=== PATIENT | female | born 1990 | race Caucasian/White ===

== ENCOUNTER → 2020-12-10 12:29 | Outpatient (BNVA) | payer OTHER, SELFPAY | PROVIDERS: PCP Internal Medicine; Visit Provider Physician Assistant | DX: E66.9 Obesity, unspecified (principal); Z68.35 Body mass index [BMI] 35.0-35.9, adult; Z71.3 Dietary counseling and surveillance | CPT/HCPCS: 99202 ==

== ENCOUNTER 2021-08-13 08:15 | Outpatient (REF) | payer OTHER, SELFPAY ==
[2021-08-13 08:46] LABS: MANUAL DIFF FLAG NO
[2021-08-13 09:12] LABS: Basophils Percent Auto 0.2 % (0-2); Eosinophils Absolute Auto 0.1 X10*3/uL (0.0-0.4); Eosinophils Percent Auto 1.5 % (0-4); Hematocrit 42.1 % (37.0-47.0); Hemoglobin 13.8 g/dl (12.0-16.0); Imm Gran Abs Auto 0.02 X10*3/uL (0.00-0.03); Imm Gran Pct Auto 0.2 % (0.0-0.4); Lymphocytes Absolute Auto 2.4 X10*3/uL (1.2-4.9); Mean Corpuscular HGB Conc 32.8 g/dl (31.0-35.0); Mean Corpuscular Hemoglobin 28.7 pg (27.0-33.0); Mean Corpuscular Volume 87.5 fL (80.0-98.0); Mean Platelet Volume 9.4 fL (9.4-12.3); Monocytes Absolute Auto 0.6 X10*3/uL (0.1-1.2); Monocytes Percent Auto 7.6 % (2-11); Neutrophils Absolute Auto 5.1 x10*3/uL (2.0-8.3); Neutrophils Percent Auto 61.5 % (45-73); Platelet Count 272 X10*3/uL (160-400); Red Blood Count 4.81 X10*6/uL (4.20-5.50); Red Cell Distribution Width 12.9 % (11.0-16.0); White Blood Count 8.3 X10*3/uL (4.8-10.8)
[2021-08-13 09:46] LABS: Alanine Aminotransferase 13 U/L (0-31); Alkaline Phosphatase 100 U/L (39-117); Anion Gap 9 (12-20); Aspartate Amino Transferase 13 U/L (5-31); Bilirubin Total 0.5 mg/dL (0.0-1.0); Blood Urea Nitrogen 11 mg/dL (9-16); Calcium 9.1 mg/dL (8.4-10.2); Carbon Dioxide 30 mmol/L (22-29); Chloride 104 mmol/L (96-108); Cholesterol 138 mg/dL; Estimated Glomerular Filt Rate > 60; Glucose Random 95 mg/dL (60-115); HDL Cholesterol 33 mg/dL; LDL Cholesterol Calculated 94 mg/dl; Potassium 4.1 mmol/L (3.3-5.1); Sodium 139 mmol/L (135-145); Total Protein 7.6 g/dL (6.5-8.0); Triglycerides 59 mg/dL
[2021-08-13 10:28] LABS: ~Hepatitis B Surface Antibody NONREACTIVE (Nonreactive)
[2021-08-15 06:57] LABS: Mumps Virus IgG Antibody <9.00 AU/mL; Rubella IgG Antibody 1.46 Index
[2021-08-16 19:56] LABS: TS Negative Control Passed; TS Panel A 0; TS Panel B 0; TS Positive Control Passed; TSpotTB Negative (Negative)
== END 2021-08-13 08:16 | disposition home or self-care (01) ==
LOC: HO.LAB 08:15
PROVIDERS: PCP Internal Medicine; Visit Provider Internal Medicine
DX: Z00.00 Encounter for general adult medical examination without abnormal findings (principal); F41.8 Other specified anxiety disorders; Z11.1 Encounter for screening for respiratory tuberculosis
CPT/HCPCS: 36415; 80053; 80061; 85025; 86481; 86706; 86735; 86762; 86765; 86787

== ENCOUNTER 2022-01-28 15:10 | Outpatient (REF) | payer OTHER, SELFPAY ==
--- NOTE | ~2022-01-28 | XR_ITS ---
EXAMINATION: XR ANKLE, RIGHT CLINICAL INFORMATION: Pain COMPARISON: Radiographs right foot 10/07/2016 TECHNIQUE: AP, lateral, and mortise views of the right ankle. FINDINGS: Normal bony mineralization. No acute or healing fracture, dislocation, destructive process. No joint narrowing or erosive change or capsular effusion. Subtalar joint unremarkable. Ankle mortise is symmetric. The retrocalcaneal recess is preserved. There is borderline punctate posterior calcaneal spur. XR/XR ankle RT min 3V IMPRESSION: -No fracture, dislocation, or arthropathy. -Punctate posterior calcaneal spur. Retrocalcaneal recess preserved.
== END 2022-01-28 15:11 | disposition home or self-care (01) ==
LOC: HO.XRAY 15:10
PROVIDERS: PCP Internal Medicine; Visit Provider Internal Medicine
DX: M25.571 Pain in right ankle and joints of right foot (principal)
CPT/HCPCS: 73610

== ENCOUNTER 2022-02-25 14:51 | Outpatient (REF) | payer OTHER, SELFPAY ==
[2022-02-26 06:41] LABS: CT PCR NOT DETECTED (Not Detect.); NG PCR NOT DETECTED (Not Detect.)
[2022-02-28 06:12] LABS: HPV mRNA E6/E7 rflx Not Detected (Not Detected)
== END 2022-02-25 14:52 | disposition home or self-care (01) ==
LOC: HO.LAB 14:51
PROVIDERS: Visit Provider Advanced Practice Midwife
DX: Z01.419 Encounter for gynecological examination (general) (routine) without abnormal findings (principal); Z11.51 Encounter for screening for human papillomavirus (HPV); Z11.4 Encounter for screening for human immunodeficiency virus [HIV]; Z20.2 Contact with and (suspected) exposure to infections with a predominantly sexual mode of transmission
CPT/HCPCS: 36415; 86704; 86780; 86803; 87389; 87491; 87591; 87624; 88142

== ENCOUNTER 2022-02-25 14:57 | Outpatient (REF) | payer OTHER, SELFPAY ==
[2022-02-25 16:29] LABS: Syphilis Screen Nonreactive (Nonreactive)
[2022-02-26 05:38] LABS: HIV AB/AG Nonreactive (Nonreactive); HIV Num 1 0.04 S/CO (0.00-0.99); ~HepC Num1 0.04 S/CO (0.00-0.79); ~Hepatitis C Antibody Nonreactive (Nonreactive)
[2022-02-26 05:48] LABS: Hepatitis B Core Antibody Nonreactive (Nonreactive)
== END 2022-02-25 14:58 | disposition home or self-care (01) ==
LOC: HO.LAB 14:57
PROVIDERS: PCP Internal Medicine; Visit Provider Advanced Practice Midwife
DX: Z13.89 Encounter for screening for other disorder (principal)
CPT/HCPCS: 36415; 86704; 86780; 86803; 87389

== ENCOUNTER → 2022-03-31 10:52 | Outpatient (BNVA) | payer OTHER, SELFPAY | PROVIDERS: PCP Internal Medicine; Visit Provider Surgery | DX: L72.11 Pilar cyst (principal) | CPT/HCPCS: 99202 ==

== ENCOUNTER 2022-08-03 09:28 | Outpatient (REF) | payer OTHER, SELFPAY | END 2022-08-03 09:29 | disposition home or self-care (01) | LOC: HO.LNP 09:28 | PROVIDERS: PCP Internal Medicine; Visit Provider Advanced Practice Midwife | DX: Z30.432 Encounter for removal of intrauterine contraceptive device (principal); T83.84XA Pain due to genitourinary prosthetic devices, implants and grafts, initial encounter | CPT/HCPCS: 58301; 99212 ==

== ENCOUNTER 2022-08-03 10:36 | Outpatient (REF) | payer OTHER, SELFPAY ==
[2022-08-03 12:35] LABS: Syphilis Screen Nonreactive (Nonreactive)
[2022-08-03 14:54] LABS: CT PCR NOT DETECTED (Not Detect.); NG PCR NOT DETECTED (Not Detect.)
[2022-08-04 13:45] LABS: BV Int Neg Control Negative (Negative); BV Int Pos Control Positive (Positive)
[2022-08-05 08:05] LABS: HBsAGNum1 0.33 S/CO (0.00-0.99); HIV AB/AG Nonreactive (Nonreactive); HIV Num 1 0.06 S/CO (0.00-0.99); Hepatitis B Surface Antigen Negative (Negative); ~HepC Num1 0.08 S/CO (0.00-0.79); ~Hepatitis C Antibody Nonreactive (Nonreactive)
== END 2022-08-03 10:37 | disposition home or self-care (01) ==
LOC: HO.LAB 10:36
PROVIDERS: PCP Internal Medicine; Visit Provider Advanced Practice Midwife
DX: Z11.4 Encounter for screening for human immunodeficiency virus [HIV] (principal); Z20.2 Contact with and (suspected) exposure to infections with a predominantly sexual mode of transmission; N89.8 Other specified noninflammatory disorders of vagina
CPT/HCPCS: 0353U; 86780; 86803; 87340; 87389; 87480; 87510; 87660

== ENCOUNTER 2023-03-03 14:01 | Outpatient (AMB) | payer OTHER, SELFPAY ==
--- NOTE | 2023-03-03 14:04 | A.OFFVIS_ITS ---
Intake Vital Signs 03/03/23 14:05 Height 5 ft 1 in Weight 172 lb BMI 32.5 BP 110/70 Intake Visit Reasons: Annual Intake Note: The patient agreed to use of a general medical practitioner during this encounter. Scribed for JHOANA Blackwood by Haydee Luis general medical practitioner, on 03/03/2023 at 2:24 pm EST. Mail Handler Assistant: Mail Handler Assistant Present (Herlinda) Allergies penicillin V Allergy (Unknown, Verified 03/03/23 14:05) rash Penicillins [PENICILLINS] Allergy (Unknown, Verified 03/03/23 14:05) HIVES Is last menstrual period known: Yes Last menstrual period: 02/23/23 HPI HPI Comments History of Present Illness Details She is a premenopausal woman presenting for annual exam. She admits to eating healthy and tries to stay active with exercise. Reports her menses this month was for 7 days when her normal is 5 days. LMP 02/23/23. She stopped taking her OCP's a month ago. Currently sexually active. She is interested in future . She is not taking PNV. Denies vaginal itching, irritation, discharge or odor. STD screening offered; she accepts. STD blood work was recently done in July 2022. Denies family hx of colon and cancer. Last pap smear 02/25/22. [facility] Medical History Club foot Depression Surgical History H/O foot surgery H/O knee surgery History of hip surgery Family History Mother Accelerated hypertension High cholesterol Anxiety Bipolar 1 disorder Asthma Ovarian cancer Diabetes Father No problems noted. Daughter No problems noted. Daughter No problems noted. Paternal Grandmother History of breast cancer Maternal Grandmother History of breast cancer Social History Alcohol intake: current Alcohol intake frequency: holidays/special occasions only Patient Tobacco Use Status: Never used Tobacco Sexual orientation: Straight/Heterosexual Gender identity: Female Female Reproductive History Menstrual Age of Menarche: 13 Duration of menses: 3-5 days Date of last menstrual period: 02/23/23 Total pregnancies: 2 Full term: 2 Number of Living Children: 2 Date of last pap smear: 02/25/22 (neg pap and hpv) Physical Exam Vital Signs: Last Vital Signs BP 110/70 03/03/23 14:05 BMI result Body Mass Index 32.5 Const General: cooperative, healthy appearing, no acute distress, well developed and alert Orientation/consciousness: patient oriented x3 HEENT Head: Yes normal to inspection Eyes General: appearance normal, both eyes and all related structures Neck Neck: Yes normal visual inspection Thyroid: Thyroid normal Chest Chest palpation & inspection: normal inspection of the chest Breast/axilla inspection: normal inspection of the breasts (no puckering, dimpling, peau de orange, retraction, discharge, masses) Breast/axilla palpation: normal palpation of the breasts Resp Effort & Inspection: normal respiratory effort GI Inspection: Yes normal to inspection Palpation (GI): Soft to palpation (to palpation) Rectal Exam - Female: deferred General: Yes bladder normal to inspection External Female Exam: normal external appearance and normal appearance of the urethra Speculum Exam - Vagina: normal appearance of the vagina, normal palpation and normal vaginal discharge Speculum Exam - Cervix: normal appearance of the cervix, normal palpation and Other cervical findings present (moderate amount of blood) Bimanual exam- vagina & uterus: normal palpation and normal palpation Bimanual Exam- Adnexa, other: normal adnexae and no masses Skin General skin exam: no rashes or lesions noted Neuro General: patient oriented x3 Cognition (Neuro): normal cognition Extrem General: Yes normal to inspection Psych Attitude: cooperative Thought process: Normal thought process present Assessment & Plan Assessment & Plan (1) Encounter for well woman exam: Code(s): Z01.419 - Encounter for gynecological examination (general) (routine) without abnormal findings Plan: Discussed: Current recommendations for pap smears per ASCCP guidelines Breast awareness and periodic self breast exams. Maintaining a healthy lifestyle including a well balanced diet and routine exercise. Monitor menses and ovulation to help plan future . If missed menses, take at home test. If positive RTO for further evaluation. PNV Rx ordered. Encouraged patient to sign up for patient portal. All of her questions and concerns were addressed to the best of my ability. RTO in one year for AG. (2) Potential exposure to STD: Code(s): Z20.2 - Contact with and (suspected) exposure to infections with a predominantly sexual mode of transmission Plan: GC/CT panel done today. Await results and treat accordingly. Orders: Orders CT NG by PCR Today Z20.2 - Contact with and (suspected) exposure to infections with a predominantly sexual mode of transmission Medications: New PNV,calcium 46-lwqr-cweeh acid 27 mg iron- 1 mg ( Vitamins Plus Low Iron) 1 tab PO DAILY 90 tabs 4RF Discontinued desog-e.estradiol/e.estradiol 0.15-0.02 mgx21 /0.01 mg x 5 Discontinued Reason: Patient Completed Course 1 tab PO DAILY 84 tabs 1RF Coding Level of Care Code Est Pt Prev Care 18-39y(24280) Diagnoses Encounter for well woman exam Z01.419 Potential exposure to STD Z20.2
[2023-03-03 14:05] VITALS: BP 110/70; BMI 32.5
== END 2023-03-03 14:43 | disposition home or self-care (01) ==
LOC: HO.HWS 14:01
PROVIDERS: PCP Internal Medicine; Visit Provider Advanced Practice Midwife
DX: Z01.419 Encounter for gynecological examination (general) (routine) without abnormal findings (principal); Z20.2 Contact with and (suspected) exposure to infections with a predominantly sexual mode of transmission
CPT/HCPCS: 99395

== ENCOUNTER 2023-03-03 14:01 | Outpatient (REF) | payer OTHER, SELFPAY ==
[2023-03-04 06:22] LABS: CT PCR NOT DETECTED (Not Detect.); NG PCR NOT DETECTED (Not Detect.)
== END 2023-03-03 14:02 | disposition home or self-care (01) ==
LOC: HO.LNP 14:01
PROVIDERS: PCP Internal Medicine; Visit Provider Advanced Practice Midwife
DX: Z01.419 Encounter for gynecological examination (general) (routine) without abnormal findings (principal); Z20.2 Contact with and (suspected) exposure to infections with a predominantly sexual mode of transmission
CPT/HCPCS: 0353U

== ENCOUNTER 2024-02-23 11:15 | Outpatient (REF) | payer OTHER, SELFPAY ==
[2024-02-23 11:29] LABS: MANUAL DIFF FLAG NO
[2024-02-23 13:02] LABS: Alanine Aminotransferase 16 U/L (0-31); Albumin Level 3.7 g/dL (3.5-5.0); Alkaline Phosphatase 99 U/L (39-117); Anion Gap 11 (12-20); Aspartate Amino Transferase 17 U/L (5-31); Bilirubin Total 0.4 mg/dL (0.0-1.0); Blood Urea Nitrogen 9 mg/dL (9-16); Calcium 9.3 mg/dL (8.4-10.2); Carbon Dioxide 27 mmol/L (22-29); Chloride 104 mmol/L (96-108); Estimated Glomerular Filt Rate > 60; Glucose Random 87 mg/dL (60-115); Sodium 138 mmol/L (135-145); Total Protein 7.7 g/dL (6.5-8.0)
[2024-02-23 13:39] LABS: Basophils Percent Auto 0.1 % (0-2); Eosinophils Absolute Auto 0.1 X10*3/uL (0.0-0.4); Eosinophils Percent Auto 0.6 % (0-4); Hematocrit 40.2 % (37.0-47.0); Hemoglobin 13.2 g/dl (12.0-16.0); Imm Gran Abs Auto 0.03 X10*3/uL (0.00-0.03); Imm Gran Pct Auto 0.3 % (0.0-0.4); Lymphocytes Absolute Auto 2.1 X10*3/uL (1.2-4.9); Lymphocytes Percent Auto 24.2 % (20-40); Mean Corpuscular HGB Conc 32.8 g/dl (31.0-35.0); Mean Corpuscular Hemoglobin 29.1 pg (27.0-33.0); Mean Corpuscular Volume 88.5 fL (80.0-98.0); Mean Platelet Volume 9.8 fL (9.4-12.3); Monocytes Absolute Auto 0.6 X10*3/uL (0.1-1.2); Monocytes Percent Auto 6.3 % (2-11); Neutrophils Absolute Auto 6.1 x10*3/uL (2.0-8.3); Neutrophils Percent Auto 68.5 % (45-73); Platelet Count 312 X10*3/uL (160-400); Red Blood Count 4.54 X10*6/uL (4.20-5.50); Red Cell Distribution Width 14.3 % (11.0-16.0); White Blood Count 8.9 X10*3/uL (4.8-10.8)
== END 2024-02-23 11:16 | disposition home or self-care (01) ==
LOC: HO.LAB 11:15
PROVIDERS: PCP Internal Medicine; Visit Provider Internal Medicine
DX: Z00.00 Encounter for general adult medical examination without abnormal findings (principal); E66.9 Obesity, unspecified; F32.5 Major depressive disorder, single episode, in full remission; F41.8 Other specified anxiety disorders
CPT/HCPCS: 36415; 80053; 84443; 85025

== ENCOUNTER 2024-03-21 09:19 | Outpatient (REF) | payer OTHER, SELFPAY | END 2024-03-21 09:20 | disposition home or self-care (01) | LOC: HO.LNP 09:19 | PROVIDERS: PCP Internal Medicine; Visit Provider Advanced Practice Midwife | DX: Z01.419 Encounter for gynecological examination (general) (routine) without abnormal findings (principal); Z34.90 Encounter for supervision of normal pregnancy, unspecified, unspecified trimester | CPT/HCPCS: 81025; 99395 ==

== ENCOUNTER 2024-03-21 09:19 | Outpatient (AMB) | payer OTHER, SELFPAY ==
[2024-03-21 09:21] VITALS: BP 128/72; BMI 36.3
--- NOTE | 2024-03-21 09:21 | A.OFFVIS_ITS ---
Vital Signs 03/21/24 09:21 Height 5 ft 1 in Weight 192 lb 4 oz BMI 36.3 BP 128/72 Blood Pressure Location Lt brachial Position Sitting Intake Visit Reasons: [employer] annual exam Allergies penicillin V Allergy (Unknown, Verified 03/21/24 09:24) rash Penicillins [PENICILLINS] Allergy (Unknown, Verified 03/21/24 09:24) HIVES Is last menstrual period known: Yes Last menstrual period: 02/05/24 Patient : Yes HPI Comments Details: She is a premenopausal woman presenting for annual examination. Doing well with concerns: Positive home test 2 wks. ago. LMP , had Depo Science Analyst in mid February at [facility]. Additionally used a condom, he reports broke that day. Positive UPT today. She denies any pelvic pain or vaginal bleeding. History of ectopic. Delivered her last baby 12/20/2023. Unplanned , accepting, and now happy. She reports her family is very excited. Concerned with her nausea able to eat but not eating as healthy as she would like. Currently taking vitamins. She denies vaginal itching and irritation. Denies family history of colon cancer. Family history of breast and ovarian cancer. Last pap smear 2021, negative. [facility] Medical History (Updated 03/21/24 @ 09:22 by Yaima Schmidt CNM) Ectopic Depression Club foot Surgical History H/O foot surgery H/O knee surgery History of hip surgery Family History Mother Accelerated hypertension High cholesterol Anxiety Bipolar 1 disorder Asthma Ovarian cancer Diabetes Father No problems noted. Daughter No problems noted. Daughter No problems noted. Paternal Grandmother History of breast cancer Maternal Grandmother History of breast cancer Social History Alcohol intake: current Alcohol intake frequency: holidays/special occasions only Patient Tobacco Use Status: Never used Tobacco Sexual orientation: Straight/Heterosexual Gender identity: Female Female Reproductive History Menstrual Age of Menarche: 13 Date of last menstrual period: 02/05/24 control method: progesterone injection Total pregnancies: 5 Full term: 3 Ab spontaneous: 1 Date of last pap smear: 02/26/22 History of abnormal pap smear: No History of STI: No Review of Systems Const All systems reviewed & are unremarkable except as noted in HPI and below Reports as per HPI Eyes Reports no additional complaints ENT Reports no additional complaints Card Reports no additional complaints Resp Reports no additional complaints GI Reports as per HPI and Reports no additional complaints Reports as per HPI Musc Reports no additional complaints Skin/Breast Reports as per HPI Neuro Reports no additional complaints Psych Reports no additional complaints Endo Reports no additional complaints Bossman/Lymph Reports no additional complaints Aller/Immun Reports no additional complaints Physical Exam Vital Signs: Last Vital Signs BP 128/72 03/21/24 09:21 BMI result Body Mass Index 36.3 Const General: cooperative, healthy appearing, no acute distress, well developed and alert Orientation/consciousness: patient oriented x3 HEENT Head: Yes normal to inspection Eyes General: appearance normal, both eyes and all related structures Neck Neck: Yes normal visual inspection Thyroid: Thyroid normal Chest Chest palpation & inspection: normal inspection of the chest and other (no puckering, dimpling, peau de orange, retraction, discharge, masses) Breast/axilla inspection: normal inspection of the breasts Breast/axilla palpation: normal palpation of the breasts Resp Effort & Inspection: normal respiratory effort GI Inspection: Yes normal to inspection Palpation (GI): Soft to palpation Rectal Exam - Female: deferred General: Yes bladder normal to palpation External Female Exam: normal external appearance and normal appearance of the urethra Speculum Exam - Vagina: normal appearance of the vagina, normal palpation and normal vaginal discharge Speculum Exam - Cervix: normal appearance of the cervix and normal palpation Bimanual exam- vagina & uterus: normal bimanual exam, normal palpation, uterine size normal, bladder normal to palpation, normal palpation and non-tender Bimanual Exam- Adnexa, other: no masses Skin General skin exam: no rashes or lesions noted Rashes: no rashes Neuro General: patient oriented x3 Cognition (Neuro): normal cognition Extrem General: Yes normal to inspection Psych Attitude: cooperative Thought process: Normal thought process present Results AMB Test Urine AMB Test Urine Positive Last Edit by Emiliana Cooper CMA on 03/21/24 09:33 Assessment & Plan Assessment & Plan (1) Encounter for well woman exam with routine gynecological exam: Code(s): Z01.419 - Encounter for gynecological examination (general) (routine) without abnormal findings Category: Medical (2) at early stage: Code(s): Z34.90 - Encounter for supervision of normal , unspecified, unspecified trimester Plan Discussed: Current recommendations for pap smears per ASCCP guidelines. Breast awareness and periodic breast exams. Maintain a healthy lifestyle including a well balanced diet and routine exercise. Start B6 vitamin use t.i.d. until nausea subsides, encouraged small frequent meals, and hydration 8-10 glasses of water a day. Plan beta HCG today, ultrasound follow up pending results. Advised to call if there is any pelvic pain or vaginal bleeding immediately. Follow up pending results for plan of care. Patient verbalizes understanding and agrees to the plan of care. She was given opportunity to ask questions and all questions were answered to the best of my ability. Additionally RTO in one year for annual control analyst examination. This note is constructed using voice recognition software. While every effort has been made to ensure accuracy, ingredient scaler helper errors may have been included. Orders: Orders CT NG by PCR Today Z01.419 - Encounter for gynecological examination (general) (routine) without abnormal findings Bacterial Vaginosis Panel Today Z01.419 - Encounter for gynecological examination (general) (routine) without abnormal findings HCG Quantitative Today Z34.90 - Encounter for supervision of normal , unspecified, unspecified trimester AMB HCG Urine Test Today Z32.01 - Encounter for test, result positive Medications: New pyridoxine (vitamin B6) 25 mg PO TID 90 tabs 0RF Coding Level of Care Code Est Pt Prev Care 18-39y(10022) Diagnoses Encounter for well woman exam with routine gynecological exam Z01.419 at early stage Z34.90
== END 2024-03-21 09:54 | disposition home or self-care (01) ==
PROVIDERS: PCP Internal Medicine; Visit Provider Advanced Practice Midwife
DX: Z01.419 Encounter for gynecological examination (general) (routine) without abnormal findings (principal); Z34.90 Encounter for supervision of normal pregnancy, unspecified, unspecified trimester; Z32.01 Encounter for pregnancy test, result positive
CPT/HCPCS: 99395

== ENCOUNTER 2024-03-21 09:59 | Outpatient (REF) | payer OTHER, SELFPAY ==
[2024-03-21 11:12] LABS: HCG Quantitative 15496 mIU/mL
[2024-03-21 14:06] LABS: CT PCR NOT DETECTED (Not Detect.); NG PCR NOT DETECTED (Not Detect.)
[2024-03-21 16:19] LABS: Bacterial Vaginosis PCR POSITIVE (Negative); Candida Group PCR NOT DETECTED (Not Detect); Candida glab krusei PCR NOT DETECTED (Not Detect); Trichomonas vaginalis PCR NOT DETECTED (Not Detect)
== END 2024-03-21 10:00 | disposition home or self-care (01) ==
LOC: HO.LAB 09:59
PROVIDERS: PCP Internal Medicine; Visit Provider Advanced Practice Midwife
DX: Z34.90 Encounter for supervision of normal pregnancy, unspecified, unspecified trimester (principal)
CPT/HCPCS: 0352U; 84702; 87491; 87591

== ENCOUNTER 2024-03-22 13:50 | Outpatient (REF) | payer OTHER, SELFPAY ==
--- NOTE | ~2024-03-22 | US_ITS ---
EXAMINATION: US OBSTETRICAL ULTRASOUND CLINICAL INFORMATION: Dates and viability COMPARISON: None available. LMP: 02/05/2024. Gestational age by maternal dates is 6 weeks 4 days. Estimated date of delivery by maternal dates is 11/11/2024. TECHNIQUE: Grayscale images of the pelvis FINDINGS: There is a single intrauterine gestational sac with visible yolk sac identified. pole not identified at this time. Gestational age per ultrasound 6 weeks 0 days MRACOS (estimated date of delivery): 11/15/2024 +/- 4 days. MATERNAL ADNEXA: The right maternal ovary measures 2.7 x 2.1 x 2.1 cm. Right ovarian cystic focus noted measuring 1.5 x 1.5 x 1.4 cm potentially representing a corpus luteal cyst. The left maternal ovary not well visualized. There is no significant maternal adnexal mass. No maternal pelvic ascites. US/US OB pelvic and transvaginal IMPRESSION: Single intrauterine gestational sac and yolk sac identified without pole corresponding to gestational age by ultrasound of 6 weeks 0 days. Gestational age per LMP relatively concordant measuring 6 weeks 4 days. Continued sonographic surveillance and follow-up beta-HCG advised. Electronically signed by: Jonathan Lombardi MD 03/25/2024 07:51 PM EDT
== END 2024-03-22 13:51 | disposition home or self-care (01) ==
LOC: HO.US 13:50
PROVIDERS: PCP Internal Medicine; Visit Provider Advanced Practice Midwife
DX: Z34.90 Encounter for supervision of normal pregnancy, unspecified, unspecified trimester (principal)
CPT/HCPCS: 76801; 76817